=== PATIENT | female | born 1970 | race Two or more races ===

== ENCOUNTER 2020-05-05 12:04 | Emergency (ER) | payer MEDICAID, OTHER ==
[~2020-05-05] VITALS: Ht 154.9 cm; Wt 63.5 kg
[~2020-05-05 12:04] MED LIST: FERR-7
[2020-05-05 16:02] VITALS: BP 154/68
== END 2020-05-05 16:10 | disposition home or self-care (01) ==
LOC: ER 12:04
DX: U07.1 COVID-19 (principal)
CPT/HCPCS: 36415; 71045; 87426

== ENCOUNTER 2020-06-08 10:33 | Emergency (ER) | payer OTHER ==
[~2020-06-08] VITALS: Ht 157.5 cm; Wt 63.5 kg
[2020-06-08 10:50] VITALS: BP 166/92
[2020-06-08] MEDS ORDERED: ALPRAZolam 0.5 MG TAB PO ONE (12:00)
[2020-06-08 12:10] LABS: Basophils # (auto) 0 10 ^3/uL (0-0.2); Basophils % (auto) 0.5 % (0.0-2.0); Eosinophils # (auto) 0.1 10 ^3/uL (0-0.8); Eosinophils % (auto) 0.7 % (0.0-7.0); Hematocrit 34.8 % (36.0-46.0); Hemoglobin 11.7 g/dL (12.2-16.2); Lymphocytes # (auto) 1.8 10 ^3/uL (0.4-5.4); Lymphocytes % (auto) 19.7 % (10.0-50.0); Mean Corpuscular Hemoglobin 28.1 pg (28.0-32.0); Mean Corpuscular Hgb Conc. 33.7 g/dL (32.0-36.0); Mean Corpuscular Volume 83.5 fL (80.0-100.0); Monocytes # (auto) 0.4 10 ^3/uL (0-1.3); Monocytes % (auto) 4.5 % (0.0-12.0); Neutrophils # (auto) 6.9 10 ^3/uL (1.6-8.6); Neutrophils % (auto) 74.6 % (37.0-80.0); Platelet Count (auto) 287 10^3/uL (140-450); Red Blood Cells 4.17 10^6/uL (4.0-5.20); Red Cell Distribution Width 13.8 % (11.8-14.3); White Blood Cell 9.2 10^3/uL (4.4-10.8)
[2020-06-08 12:25] LABS: Anion Gap 8 (5-15); Blood Urea Nitrogen 7 mg/dL (7-18); Calcium 9.2 mg/dL (8.5-10.1); Carbon Dioxide 25 mmol/L (21-32); Chloride 105 mmol/L (98-107); Glucose 115 mg/dL (74-106); Potassium 4.4 mmol/L (3.5-5.1); Sodium 138 mmol/L (136-145)
[2020-06-08 12:31] LABS: GFR African American 167 mL/min; GFR Non-African American 138 mL/min
== END 2020-06-08 12:58 | disposition home or self-care (01) ==
LOC: ER 10:33
DX: F41.1 Generalized anxiety disorder (principal); I10 Essential (primary) hypertension
CPT/HCPCS: 36415; 80048; 84484; 85025; 93005

== ENCOUNTER 2020-10-27 18:44 | Emergency (ER) | payer OTHER ==
[~2020-10-27] VITALS: Ht 154.9 cm; Wt 63.5 kg
[2020-10-27] MEDS ORDERED: ONDANSETRON HCL 4 MG/2 ML VIAL IV ONE (20:30)
[2020-10-27] MEDS ORDERED: MORPHINE SULFATE 4 MG/ML SYR/VIAL IV ONE (20:30)
[2020-10-27 22:30] VITALS: BP 145/75
[2020-10-27] MEDS ORDERED: TETANUS-DIPTH-ACEL PERTUSSIS 0.5ML SYR Tdap IM ONE (23:15)
== END 2020-10-27 23:40 | disposition home or self-care (01) ==
LOC: ER 18:44
DX: S68.112A Complete traumatic metacarpophalangeal amputation of right middle finger, initial encounter (principal); X58.XXXA Exposure to other specified factors, initial encounter; Y93.89 Activity, other specified; Y92.89 Other specified places as the place of occurrence of the external cause; Y99.8 Other external cause status
CPT/HCPCS: 29130; 73130; 90471; 90715; 96374; 96375; 99285; J2270; J2405; J7030